=== PATIENT | male | born 1985 | race African-American/Black ===

== ENCOUNTER 2019-11-20 18:20 | Emergency (ER) | payer SELFPAY ==
--- NOTE | 2019-11-20 18:32 | PDOC ---
Rapid Medical Evaluation Chief Complaint: Chest Pain Time Seen by Provider: 11/20/19 18:31 Medical Evaluation: Allergies Allergy/AdvReac Type Severity Reaction Status Date / Time No Known Allergies Allergy Verified 08/29/12 21:24 11/20/19 18:31 34 year old chest pain worse with movement. patient reports pain for 4 days. denies taking any medication at [facility]. a: CHEST PAIN P; ekg Discharge Disposition - Diagnosis Chest pain Qualifiers: Chest pain type: unspecified Qualified Code(s): R07.9 - Chest pain, unspecified - Referrals - Patient Instructions - Post Discharge Activity
[2019-11-20 18:55] VITALS: BP 130/80; PULSE 61; TEMP 98.2; BMI 29.5
--- NOTE | 2019-11-20 18:57 | PDOC ---
*Physical Exam - Vital Signs Last Vital Signs Temp Pulse Resp BP Pulse Ox 98.2 F 61 18 130/80 99 11/20/19 18:32 11/20/19 18:32 11/20/19 18:32 11/20/19 18:32 11/20/19 18:32 Medical Decision Making - Medical Decision Making 11/20/19 18:57 Patient seen by the advanced practice provider under my direct supervision. Ancillary testing reviewed as necessary. I agree with plan as outlined by the advanced practice provider. Discharge - Discharge Information Problems reviewed: Yes Clinical Impression/Diagnosis: Costochondritis, acute Condition: Fair Disposition: HOME - Follow up/Referral - Patient Discharge Instructions Patient Printed Discharge Instructions: DI for Costochondritis Additional Instructions: Your emergency department visit is incomplete until you follow-up with your primary doctor. Your chest x-ray today was unremarkable. Your EKG was unremarkable. Take Tylenol or Motrin as needed for pain. Follow electrician assistant's instructions for appropriate dosage. Return to emergency department for any new or worsening symptoms. Thank you very much for choosing us to provide your emergent healthcare needs. - Post Discharge Activity
[2019-11-20] MEDS ORDERED: KETOROLAC TROMETHAMINE 30 MG/1 ML VIAL IM ONE (19:32)
--- NOTE | 2019-11-20 19:42 | PDOC ---
History of Present Illness - General Chief Complaint: Chest Pain Stated Complaint: CHEST PRESSURE Time Seen by Provider: 11/20/19 18:31 History Source: Patient Exam Limitations: No Limitations - History of Present Illness Initial Comments: 11/20/19 19:39 HISTORY OF PRESENT ILLNESS: 34-year-old male denies medical history presents emergency department for evaluation of pain starting at his upper back radiating down his left shoulder extending to the pinky of his left hand. Pain also progressed overnight down his back and then circumferentially bandlike at the lower aspect of the ribs. Patient reports the pain is intermittent and worsens with movement. He has not taken anything for the pain. Denies any cocaine use or significant family history. 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 No recent travel or sick contacts. PAST MEDICAL HISTORY: Denies past medical history SURGICAL HISTORY: Denies ALLERGIES: No known drug allergies REVIEW OF SYSTEMS General/Constitutional: Denies fever or chills. Denies weakness, weight change. HEENT: Denies change in vision. Denies ear pain or discharge. Denies sore throat. Cardiovascular: See HPI Respiratory: Denies cough, wheezing, or hemoptysis. Gastrointestinal: Denies nausea, vomiting, diarrhea or constipation. Denies rectal bleeding. Genitourinary: Denies dysuria, frequency, or change in urination. Musculoskeletal: Denies joint or muscle swelling or pain. Denies neck or back pain. Skin and breasts: Denies rash or easy bruising. Neurologic: Denies headache, vertigo, loss of consciousness, or loss of sensation. Psychiatric: Denies depression or anxiety. Endocrine: Denies increased thirst. Denies abnormal weight change. Hematologic/Lymphatic: Denies anemia, easy bleeding, or history of blood clots. Allergic/Immunologic: Denies hives or skin allergy. Denies latex allergy. PHYSICAL EXAM General Appearance: Well-appearing, appropriately dressed. No apparent distress , no intoxication. HEENT: EOMI, PERRLA, normal ENT inspection, normal voice, TMs normal, pharynx normal. No conjunctival pallor. No photophobia, scleral icterus. Neck: Supple. Trachea midline. No tenderness, rigidity, carotid bruit, stridor , lymphadenopathy, or thyromegaly. Respiratory/Chest: Lungs CTAB. No shortness of breath, respiratory distress, accessory muscle use. No crackles, rales, rhonchi, stridor, wheezing, dullness. Chest tender to palpation to the right side of the chest over the sternal border. No bony deformity, crepitus or flail chest is present. Cardiovascular: RRR. S1, S2. No JVD, murmur, bradycardia, tachycardia. Vascular Pulses: Dorsalis-Pedis (R): 2+, Dorsalis-Pedis (L): 2+ Gastrointestinal/Abdominal: Normal bowel sounds. Abdomen soft, non-distended. No tenderness or rebound tenderness. No organomegaly, pulsatile mass, guarding, hernia, hepatomegaly, splenomegaly. Musculoskeletal/Extremities: Normal inspection. FROM of all extremities, normal capillary refill. Pelvis Stable. No CVA tenderness. No tenderness to extremities, pedal edema, swelling, erythema or deformity. Integumentary: Appropriate color, dry, warm. No cyanosis, erythema, jaundice or rash Past History - Past Medical History Allergies/Adverse Reactions: Allergies Allergy/AdvReac Type Severity Reaction Status Date / Time No Known Allergies Allergy Verified 08/29/12 21:24 Home Medications: Ambulatory Orders No Home Medications 0 dose .ROUTE UTDICT 08/29/12 COPD: No - Psycho Social/Smoking Cessation Hx Smoking Status: No Smoking History: Never smoked Have you smoked in the past 12 months: No Number of Cigarettes Smoked Daily: 0 Information on smoking cessation initiated: No Hx Alcohol Use: No Drug/Substance Use Hx: No *Physical Exam - Vital Signs Last Vital Signs Temp Pulse Resp BP Pulse Ox 98.2 F 61 18 130/80 99 11/20/19 18:32 11/20/19 18:32 11/20/19 18:32 11/20/19 18:32 11/20/19 18:32 ED Treatment Course - RADIOLOGY Radiology Studies Ordered: Category Date Time Status CHEST PA & LAT [RAD] Stat Radiology 11/20/19 19:32 Ordered Medical Decision Making - Medical Decision Making 11/20/19 19:41 A/P: 34-year-old male with reproducible chest pain for 4 days Most likely musculoskeletal in nature as pain is easily reproducible with light palpation to the right chest. EKG sinus rhythm with a rate of 58. Normal intervals present. Normal axis. T wave inversion present in lead V2. Chest x-ray Toradol Reassess 11/20/19 19:50 Chest x-ray as read by me: Brigida guallpa. Cardiac silhouette is within normal limits. Lung galvan clear without focal infiltrates or consolidations noted. Visualized bones are intact. Discharge home Discharge - Discharge Information Problems reviewed: Yes Clinical Impression/Diagnosis: Costochondritis, acute Condition: Fair Disposition: HOME - Admission No - Follow up/Referral - Patient Discharge Instructions Patient Printed Discharge Instructions: DI for Costochondritis Additional Instructions: Your emergency department visit is incomplete until you follow-up with your primary doctor. Your chest x-ray today was unremarkable. Your EKG was unremarkable. Take Tylenol or Motrin as needed for pain. Follow credit checker's instructions for appropriate dosage. Return to emergency department for any new or worsening symptoms. Thank you very much for choosing us to provide your emergent healthcare needs. - Post Discharge Activity
[2019-11-20] MEDS ORDERED: KETOROLAC TROMETHAMINE 30 MG/1 ML VIAL ONE (19:54)
--- NOTE | 2019-11-21 14:31 | EKG ---
Test Reason : Blood Pressure : / mmHG Vent. Rate : 058 BPM Atrial Rate : 058 BPM P-R Int : 176 ms QRS Dur : 084 ms QT Int : 386 ms P-R-T Axes : 072 075 054 degrees QTc Int : 378 ms SINUS BRADYCARDIA POSSIBLE LEFT ATRIAL ENLARGEMENT BORDERLINE ECG Confirmed by MD KELSEA, ELOIES ([id number]) on 11/21/2019 2:31:07 PM Referred By: Confirmed By:ELOISE ENAMORADO MD
== END 2019-11-20 20:06 | disposition home or self-care (01) ==
LOC: JER 18:20
PROC: 3E0233Z Introduction of Anti-inflammatory into Muscle, Percutaneous Approach (ICD-10-PCS; principal; 2019-11-20)
DX: M94.0 Chondrocostal junction syndrome [Tietze] (principal)
CPT/HCPCS: 71046-TC-FY; 93005; 93010; 99281-25